=== PATIENT | male | born 1965 | race Caucasian/White ===

== ENCOUNTER 2019-08-24 12:55 | Emergency (ER) | payer MEDICAID ==
[~2019-08-24] VITALS: Ht 172.7 cm; Wt 106.1 kg
[~2019-08-24 12:55] MED LIST: AMOX-422 PO; NAPR-56 PO
[2019-08-24 13:10] VITALS: BP 124/84
[2019-08-24] MEDS ORDERED: LIDOcaine 1% W/epiNEPHrine 1:200,000 10ml vial IJ ONE (13:55)
== END 2019-08-24 14:57 | disposition home or self-care (01) ==
LOC: ER 12:56
DX: S61.412A Laceration without foreign body of left hand, initial encounter (principal); Z72.89 Other problems related to lifestyle; Z88.5 Allergy status to narcotic agent; Z79.2 Long term (current) use of antibiotics; Z79.899 Other long term (current) drug therapy; W45.8XXA Other foreign body or object entering through skin, initial encounter; Y93.89 Activity, other specified; Y92.89 Other specified places as the place of occurrence of the external cause; Y99.8 Other external cause status
CPT/HCPCS: 12004; 99282